=== PATIENT | male | born 1935 | race Caucasian/White ===

== ENCOUNTER 2017-08-31 06:00 | Day surgery (SDC) | payer OTHER ==
[2017-08-30 13:53] VITALS: BP 187/83
[2017-08-30 14:18] LABS: BASOPHILS % (AUTO) 0.3 % (0.0-5.0); HEMATOCRIT 42.3 % (42-54); LYMPHOCYTES % (AUTO) 11.2 % (21.0-51.0); MEAN CORPUSCULAR HEMOGLOBIN 32.8 pg (27.0-33.0); MEAN CORPUSCULAR HGB CONC 33.8 g/dL (32.0-36.0); MEAN CORPUSCULAR VOLUME 97.2 fL (79-99); MONOCYTES % (AUTO) 6.2 % (3.0-13.0); NEUTROPHILS % (AUTO) 82.3 % (40.0-77.0); PLATELET COUNT (AUTO) 257 K/uL (130-400); RED BLOOD CELL COUNT(AUTO) 4.36 MIL/uL (4.50-6.20); RED CELL DISTRIBUTION WIDTH 13.1 % (11.0-15.5); WHITE BLOOD COUNT (AUTO) 9.7 K/uL (4.8-10.8)
[2017-08-30 14:21] LABS: CREATININE 1.7 mg/dL (0.5-1.5); POTASSIUM 4.8 mmol/L (3.5-5.1)
[~2017-08-31] VITALS: Ht 180.3 cm; Wt 95.0 kg
[2017-08-31] VITALS (9 sets, daily range): BP systolic 141–189; BP diastolic 58–120
[~2017-08-31 06:00] MED LIST: CEFAZOLIN SODIUM 1 GM VIAL IVP SCH; SODIUM CHLORIDE 0.9% 1000ML 1,000 ML IV SCH
[2017-08-31] MEDS ORDERED: PRED10TA3 PO (07:05)
[2017-08-31] MEDS ORDERED: METO-391 PO (07:05)
[2017-08-31] MEDS ORDERED: RIVA20TA PO (07:05)
[2017-08-31] MEDS ORDERED: FOLI0.8T PO (07:05)
[2017-08-31] MEDS ORDERED: CEPH250T PO (07:05)
[2017-08-31] MEDS ORDERED: FENO134C PO (07:05)
[2017-08-31] MEDS ORDERED: LOSA1TAB42 PO (07:05)
[2017-08-31] MEDS ORDERED: AEC81 PO (07:05)
[2017-08-31] MEDS ORDERED: BUPIVACAINE/PF 0.25% 30ML VIAL IJ ONE (07:29)
[2017-08-31] MEDS ORDERED: CEFAZOLIN 1GM / D5W 50ML 150 ML ONE (07:29)
[2017-08-31] MEDS ORDERED: MEPERIDINE-PF 25 MG/ML SYG ONE ×2 (07:30→08:11)
[2017-08-31] MEDS ORDERED: MIDAZOLAM HCL 1 MG/ML 2ML VIAL ONE ×2 (07:30→08:11)
[2017-08-31] MEDS ORDERED: LIDOCAINE HCL 2% 20ML ONE (07:42)
[2017-08-31] MEDS ORDERED: TYL3 PO (08:45)
[2017-08-31] MEDS ORDERED: ACETAMINOPHEN-CODEINE 300/30MG TAB PO PRN ×2 (08:45)
[2017-08-31] MEDS ORDERED: ACETAMINOPHEN 325 MG TAB PO PRN (08:45)
== END 2017-08-31 12:05 | disposition home or self-care (01) ==
LOC: DAH 06:00
PROVIDERS: ATTEND Internal Medicine Cardiovascular Disease
DX: Z45.010 Encounter for checking and testing of cardiac pacemaker pulse generator [battery] (principal); I25.10 Atherosclerotic heart disease of native coronary artery without angina pectoris; I10 Essential (primary) hypertension; J45.909 Unspecified asthma, uncomplicated; E78.5 Hyperlipidemia, unspecified; Z68.29 Body mass index [BMI] 29.0-29.9, adult; Z79.899 Other long term (current) drug therapy; I65.22 Occlusion and stenosis of left carotid artery; Z98.890 Other specified postprocedural states; I49.5 Sick sinus syndrome
CPT/HCPCS: 33228; 36415; 80048; 82948; 85025; 99152 ×2; 99153; A4606; C1785; J0690; J2175 ×2; J2250 ×2; J3490 ×2; J7030; 99156; 99157